=== PATIENT | male | born 2000 | race African-American/Black ===

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

== ENCOUNTER 2024-05-08 08:06 | Emergency (ER) | payer MEDICAID, OTHER ==
[~2024-05-08] VITALS: Ht 172.7 cm; Wt 58.9 kg
[2024-05-08 08:22] VITALS: O2SAT 98
[2024-05-08 09:27] LABS: BASOPHILS % 0.4 % (0.0-2.0); EOSINOPHILS % 1.2 % (0.0-5.0); HEMATOCRIT. 47.9 % (42.0-52.0); HEMOGLOBIN. 16.1 g/dL (14.0-18.0); LYMPHOCYTES % 16.5 % (20.0-50.0); MEAN CORPUSCULAR HEMOGLOBIN 30.8 pg (28.0-32.0); MEAN CORPUSCULAR HGB CONC 33.6 g/dL (31.0-37.0); MEAN CORPUSCULAR VOLUME 91.6 fL (80.0-94.0); MEAN PLATELET VOLUME 9.5 fl (7.4-10.4); MONOCYTES % 9.5 % (2.0-8.0); NEUTROPHILS % 72.4 % (40.0-76.0); PLATELET 207 x1000/uL (130-400); RED BLOOD CELL COUNT 5.22 mill/uL (4.7-6.1); RED CELL DISTRIBUTION WIDTH 13.7 % (11.6-14.6); WHITE BLOOD COUNT 9.1 x1000/uL (4.5-11.0)
[2024-05-08 09:32] LABS: CHLORIDE 105 mEq/L (98-107); POTASSIUM 3.7 mEq/L (3.5-5.1); SODIUM 140 mEq/L (136-145)
[2024-05-08 09:33] LABS: CARBON DIOXIDE 30 mEq/L (21-32)
[2024-05-08 09:38] LABS: CREATININE 0.9 mg/dL (0.6-1.3); GLUCOSE 95 mg/dL (70-105); UREA NITROGEN BLOOD 8 mg/dL (9-23)
[2024-05-08 09:56] LABS: TROPONIN I HIGH SENSITIVITY < 4 ng/L (3.0-53)
[2024-05-08 11:28] VITALS: BP 133/68; PULSE 78; RESP 12; TEMP 37.05852; O2SAT 98
== END 2024-05-08 11:30 | disposition home or self-care (01) ==
LOC: ER 08:19
DX: R07.89 Other chest pain (principal)
CPT/HCPCS: 80048; 85025; 84484; 36415; 71045; 93005; 99285; Z7610